=== PATIENT | female | born 1970 | race Caucasian/White ===

== ENCOUNTER 2017-02-24 15:06 | Emergency (ER) | payer BC ==
[~2017-02-24] VITALS: Ht 167.6 cm; Wt 87.7 kg
[~2017-02-24 15:06] MED LIST: CYAN100T PO; DOCU-94 PO; LORA-741 PO
[2017-02-24 15:09] VITALS: TEMP 36.7; Ht 167.6 cm; Wt 87.7 kg
[2017-02-24] MEDS ORDERED: CHOL400T PO (15:13)
[2017-02-24] MEDS ORDERED: ESCI10TA17 PO (15:13)
[2017-02-24] MEDS ORDERED: LISI-729 PO (15:13)
[2017-02-24] MEDS ORDERED: OXYCODONE HCL IR 5 MG TAB (IMMEDIATE RELEASE) PO STA (15:24)
[2017-02-24] MEDS ORDERED: ONDANSETRON 4MG OD TAB PO STA (15:24)
--- NOTE | 2017-02-24 16:08 | DIAGNOSTIC IMAGING REPORT ---
HEAD CT NONCONTRAST CT DOSE: 946.70 mGy.cm HISTORY: Trauma head/neck pain, fall down stairs TECHNIQUE: Multiaxial CT images of the head were performed without the use of intravenous contrast. Comparison: None. Findings: The paranasal sinuses and mastoid air cells are clear. The calvarium and skull base are intact. The ventricles and sulci are within normal limits. There is no mass, hematoma, midline shift, or acute infarct. Impression: No acute intracranial abnormality. Electronically signed by: Carl Cortes M.D. 02/24/2017 4:06 PM Dictated Date/Time: 02/24/2017 4:06 PM
--- NOTE | 2017-02-24 16:21 | DIAGNOSTIC IMAGING REPORT ---
CT OF THE CERVICAL SPINE WITHOUT CONTRAST CLINICAL HISTORY: Neck pain following fall. COMPARISON STUDY: Cervical spine radiographs August 16, 2013. TECHNIQUE: Helical axial images of the cervical spine were obtained without IV contrast. Sagittal and coronal reconstructions were viewed. FINDINGS: The craniocervical junction is intact. There is an acute minimally displaced fracture of the anterior aspect of the left lateral mass of C2. This does not extend into the foramen transversarium. There is no involvement of the posterior elements. No additional acute fractures are identified on this examination. There is no prevertebral edema. Moderate multilevel degenerative disc disease and facet arthrosis is present. A few tiny ossicles at the C1-C2 articulation are probably old. Reversal of cervical lordosis is unchanged at August 06, 2013. IMPRESSION: Acute minimally displaced fracture of the left lateral mass of C2 involving the superior articular facet. This fracture is considered stable. Electronically signed by: Tomasz Bruce M.D. 02/24/2017 4:19 PM Dictated Date/Time: 02/24/2017 4:06 PM
--- NOTE | 2017-02-24 16:26 | DIAGNOSTIC IMAGING REPORT ---
RIGHT FOREARM 2 VIEWS ROUTINE CLINICAL HISTORY: right forearm pain, fall Right trauma. Pain. COMPARISON: None. DISCUSSION: The bones and joint spaces appear intact. There is no evidence of fracture, dislocation or bony disease. There is no evidence for soft tissue swelling. IMPRESSION: Negative study. Electronically signed by: Carl Cortes M.D. 02/24/2017 4:25 PM Dictated Date/Time: 02/24/2017 4:25 PM
--- NOTE | 2017-02-24 16:27 | DIAGNOSTIC IMAGING REPORT ---
LEFT FOOT MIN 3 VIEWS ROUTINE CLINICAL HISTORY: left foot pain, fall trauma. Pain. COMPARISON: None. DISCUSSION: The bones and joint spaces appear intact. There is no evidence of fracture, dislocation or bony disease. There is no evidence for soft tissue swelling. IMPRESSION: Negative study. Electronically signed by: Carl Cortes M.D. 02/24/2017 4:26 PM Dictated Date/Time: 02/24/2017 4:25 PM
[2017-02-24] MEDS ORDERED: KETOROLAC TROMETHAMINE 60 MG/2 ML VIAL IM STA (16:39)
[2017-02-24] MEDS ORDERED: OXYC-57 PO (16:45)
--- NOTE | 2017-02-24 16:46 | EMERGENCY ROOM VISIT NOTE ---
History First contact with patient: 15:13 Chief Complaint: FALL Stated Complaint: HEAD,NECK PAIN/ DIZZY/NAUSOUS/FELL DOWN STAIRS History of Present Illness The patient is a 46 year old female who presents to the Emergency Room for evaluation after a fall. The patient reports that last night, she slipped and fell down approximately 7 steps. She states that since then, she has had a headache, dizziness, nausea and neck pain. She reports that she also has pain in the right forearm, left foot and right hip. She has been able to walk without difficulty. She rates her overall discomfort a 7/10. She states that her discomfort is primarily in her neck. She did not lose consciousness after the injury. There has been no vomiting. The patient's family reports that she has been acting normally. She has taken Tylenol and ibuprofen for pain without relief. Review of Systems A complete 10-point Review of Systems was discussed with the patient, with pertinent positives and negatives listed in the History of Present Illness. All remaining Review of Systems questions can be considered negative unless otherwise specified. Past Medical/Surgical History Medical Problems: (1) Hypertension Family History Diabetes mellitus FH: cancer FH: heart disease Hypertension Social History Smoking Status: Never Smoker Marital Status: Housing Status: lives with family Current/Historical Medications Scheduled Cholecalciferol (Vitamin D), Unknown Dose PO DAILY Escitalopram (Lexapro), Unknown Dose PO DAILY Lisinopril (Zestril), Unknown Dose PO DAILY Lorazepam (Ativan), 0.5 MG PO UD Scheduled PRN Oxycodone/Acetaminophen 5MG/325MG (Percocet 5MG/325MG), 1-2 TABS PO Q4H PRN for Pain Allergies Coded Allergies: Prednisone (Verified Allergy, Unknown, HIVES, 08/25/16) ITCHING Physical Exam Vital Signs Date Time Temp Pulse Resp B/P Pulse Ox O2 Delivery O2 Flow Rate FiO2 02/24/17 17:22 72 14 141/98 94 02/24/17 15:09 36.7 66 16 149/101 96 Room Air Physical Exam VITALS: Vitals are noted on the nurse's note and reviewed by myself. Vital signs stable. GENERAL: This is a 46-year-old female, in no acute distress, nondiaphoretic, well-developed well-nourished. SKIN: There are areas of ecchymosis over the dorsal left foot, right proximal femur, and right lateral forearm. HEENT: Normocephalic, atraumatic. PERRLA. EOMI. No hemotympanum. Nares patent. Mucous membranes moist. NECK: There is tenderness to palpation over the cervical spinous processes. Decreased range of motion of the neck due to pain. HEART: Regular rate and rhythm without murmurs gallops or rubs. LUNGS: Clear to auscultation bilaterally without wheezes, rales or rhonchi. ABDOMEN: Positive bowel sounds x 4. Soft, nontender. MUSCULOSKELETAL: There is moderate tenderness of the right lateral forearm and left dorsal foot. There is mild tenderness to palpation of the right proximal femur. Full range of motion of all extremities. Strength 5/5 throughout. NEURO: Patient was alert and oriented to person place and time. Normal sensation to light and sharp touch. No focal neurological deficits. Medical Decision & Procedures ER Provider Diagnostic Interpretation: HEAD CT NONCONTRAST Findings: The paranasal sinuses and mastoid air cells are clear. The calvarium and skull base are intact. The ventricles and sulci are within normal limits. There is no mass, hematoma, midline shift, or acute infarct. Impression: No acute intracranial abnormality. CT OF THE CERVICAL SPINE WITHOUT CONTRAST FINDINGS: The craniocervical junction is intact. There is an acute minimally displaced fracture of the anterior aspect of the left lateral mass of C2. This does not extend into the foramen transversarium. There is no involvement of the posterior elements. No additional acute fractures are identified on this examination. There is no prevertebral edema. Moderate multilevel degenerative disc disease and facet arthrosis is present. A few tiny ossicles at the C1-C2 articulation are probably old. Reversal of cervical lordosis is unchanged at August 06, 2013. IMPRESSION: Acute minimally displaced fracture of the left lateral mass of C2 involving the superior articular facet. This fracture is considered stable. RIGHT FOREARM 2 VIEWS ROUTINE DISCUSSION: The bones and joint spaces appear intact. There is no evidence of fracture, dislocation or bony disease. There is no evidence for soft tissue swelling. IMPRESSION: Negative study. LEFT FOOT MIN 3 VIEWS ROUTINE DISCUSSION: The bones and joint spaces appear intact. There is no evidence of fracture, dislocation or bony disease. There is no evidence for soft tissue swelling. IMPRESSION: Negative study. Medications Administered Medications (Trade) Dose Ordered Sig/Shashi Route Start Time Stop Time Status Last Admin Dose Admin Ondansetron HCl (Zofran Odt) 4 mg NOW STAT PO 02/24/17 15:24 02/24/17 15:27 DC 02/24/17 15:44 4 MG Oxycodone HCl (Roxicodone Immediate Rel Tab) 5 mg NOW STAT PO 02/24/17 15:24 02/24/17 15:27 DC 02/24/17 15:43 5 MG Ketorolac Tromethamine (Toradol Inj) 60 mg NOW STAT IM 02/24/17 16:39 02/24/17 16:40 DC 02/24/17 17:17 60 MG Medical Decision Differential diagnosis includes fracture, contusion, sprain, among others. The patient was evaluated as above. She presents complaining primarily of neck pain after a fall. The patient was placed in a rigid cervical collar immediately after my evaluation. She was given 4 mg Zofran for nausea and 5 mg OxyIR for pain. Imaging studies were performed and read by radiology as above. The patient was found to have a fracture of C2. Case was discussed with Dr. Lyman, the orthopedic spinal surgeon on-call who recommended placing the patient any [place] J collar and having her follow-up with orthopedics in the office. She was given information for follow-up. She was given 60 mg Toradol IM. All other imaging studies were unremarkable. The patient was given a prescription for pain medication and conservative measures were discussed. She verbalized understanding of my assessment and treatment plan and was discharged home in good condition. [place] Drug Monitoring Program Search Results: patient reviewed within database, no issues identified Impression Primary Impression: Closed fracture of cervical spine Additional Impression: Contusion of multiple sites Departure Information Dispostion Home / Self-Care Condition GOOD Prescriptions Oxycodone/Acetaminophen 5MG/325MG (PERCOCET 5MG/325MG) Tab 1-2 TABS PO Q4H Y for Pain, #20 TAB For Initial Treatment Prov: Sadia Alexander ., SEBASTIAN 02/24/17 Referrals Michi Moore Jr,D.O. (PCP) Scotty Diaz M.D. Patient Instructions My [facility] Additional Instructions You have been treated in the Emergency Department for a fall and fracture of your cervical spine. You have received pain medicine in the emergency department which impairs your ability to operate a vehicle. It is illegal for you to drive after receiving these medicines. You have been prescribed Percocet to be used for pain control. This is a narcotic medication. You cannot drive or consume alcohol while on this medicine. This medicine should only be used for pain that cannot be controlled with [id number] pain medicines. For pain control, you can use the following [id number] medicines (if >12 yo): - Regular strength (325mg/tab) Tylenol (acetaminophen) 2 tabs every 4-6 hours as needed. Do not exceed 12 tablets in a 24 hour period. Avoid taking more than 4 grams (4000 mg) of Tylenol per day. This includes any other sources of acetaminophen you may take on a regular basis. - Regular strength (200 mg/tab) Advil (ibuprofen) 1-2 tabs every 4-6 hours as needed. Do not exceed a dose of 3200 mg per day. If this is an acute injury, ice can be applied to the area of pain for the first 3 days to help decrease pain and inflammation. After the first 3 days, a heating pad can be used over the area for continued soothing relief. Contact Dr. Smith's office tomorrow to schedule a follow-up appointment. Return to the Emergency Department if your current symptoms worsen despite treatment course outlined above, or if you develop any of the following symptoms : intractable pain despite aforementioned treatment course, numbness or tingling in your arms, or any new/concerning symptoms. Problem Qualifiers Primary Impression: Closed fracture of cervical spine Encounter type: initial encounter Cervical vertebra fracture level: C2
[2017-02-24 17:22] VITALS: BP 141/98; PULSE 72; O2SAT 94
== END 2017-02-24 17:24 | disposition home or self-care (01) ==
LOC: C.EDB 15:08 → C.EDD 17:24
DX: S12.101A Unspecified nondisplaced fracture of second cervical vertebra, initial encounter for closed fracture (principal); T14.8 Other injury of unspecified body region; W10.9XXA Fall (on) (from) unspecified stairs and steps, initial encounter; I10 Essential (primary) hypertension

== ENCOUNTER → 2017-03-10 | Outpatient (CLI) | payer BC ==
[~2017-03-10] MED LIST changes: +CHOL400T PO; -CYAN100T PO; -DOCU-94 PO; +ESCI10TA17 PO; +LISI-729 PO; +OXYC-57 PO
--- NOTE | 2017-03-18 10:37 | CODING QUERY NO DIAGNOSIS ---
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 Please assist us with providing a diagnosis/symptom for the test(s) below: A diagnosis/symptom was not documented on your Order. A valid diagnosis/symptom is required to bill all insurances. Please remember that we are unable to code a diagnosis of rule out, probable, possible, questionable, or suspected. Tests that require a diagnosis from 03/10/17: * THIN PREP PAP TEST DIAGNOSIS: Provider Signature: Date: Thank you Lina Briones [employer] Once completed, please kindly fax back to [phone] For questions please call [phone]
== END ==
LOC: C.PAPS 11:38
PROVIDERS: ATTEND Nurse Practitioner Family
DX: Z01.411 Encounter for gynecological examination (general) (routine) with abnormal findings (principal)

== ENCOUNTER → 2017-04-20 | Outpatient (CLI) | payer BC ==
--- NOTE | 2017-04-20 15:10 | MAMMOGRAPHY REPORT ---
THIS REPORT HAS BEEN AMENDED. AMENDMENT: 04/27/2017 Radha Bernal M.D. A prior outside mammogram dated 02/24/2012 became available for review. The asymmetry in the upper o uter middle one third of the right breast appears stable comparing to the 2011 exam, most likely repr esenting the patient's baseline parenchymal pattern. There is no evidence of a suspicious mass, arch itectural distortion or suspicious calcifications bilaterally. Therefore, recommend follow-up in 1 y ear for next annual screening mammogram. Amended BI-RADS: ACR BI-RADS Category 2: Benign letter sent: Normal 11/29 BILATERAL DIGITAL SCREENING MAMMOGRAM TOMOSYNTHESIS WITH CAD: 04/20/2017 CLINICAL HISTORY: Routine screening. Patient has no complaints. TECHNIQUE: Bilateral breast tomosynthesis in addition to standard 2D mammography was performed. Curre nt study was also evaluated with a Computer Aided Detection (CAD) system. COMPARISON: No prior exams were available for comparison. BREAST COMPOSITION: There are scattered areas of fibroglandular density in both breasts. FINDINGS: There is asymmetry in the upper outer middle one third of the right breast. Although this could represent normal fibroglandular tissue, comparison to prior outside mammograms would be useful to assess stability. If the outside exams are not obtained in a timely manner, additional spot comp ression, symphysis views and possibly ultrasound are recommended. No other suspicious mass, architectural distortion or cluster of microcalcifications is seen bilatera lly. IMPRESSION: ACR BI-RADS CATEGORY 0: INCOMPLETE EVALUATION: NEED ADDITIONAL IMAGING EVALUATION The asymmetry in the right upper outer quadrant could represent normal fibroglandular tissue, however , comparison to prior outside mammograms would be useful to assess stability. If the outside exams a re not obtained in a timely manner, additional spot compression tomosynthesis views and possibly ultr asound are recommended. The patient will be called to schedule an appointment. Approximately 10% of breast cancers are not detected with mammography. A negative mammographic report should not delay biopsy if a clinically suggestive mass is present. Radha Bernal M.D. ay/:04/20/2017 13:17:41 Filing Writer: Svitlana WILSON(Antoine)(Wendy), [facility] letter sent: Need Priors 0 BI-RADS Code: ACR BI-RADS Category 0: Incomplete Evaluation: Need Additional Imaging Evaluation
== END | disposition home or self-care (01) ==
LOC: C.MAMM 12:09
PROVIDERS: ATTEND Nurse Practitioner Family
DX: Z12.31 Encounter for screening mammogram for malignant neoplasm of breast (principal); N64.9 Disorder of breast, unspecified